=== PATIENT | female | born 1975 ===

== ENCOUNTER 2020-04-18 09:10 | Outpatient (CLI) | payer BC ==
[~2020-04-18 09:10] MED LIST: AMOXICILLIN500 M1; CEFACLOR500 MG PO; FIORICET 50-301 EACH PO; FLUCONAZOLE50 MG; PREDNISONE5 MG/DOSE- PO
== END 2020-04-18 14:43 | disposition home or self-care (01) ==
LOC: LAB 09:10
DX: N95.1 Menopausal and female climacteric states (principal); R89.1 Abnormal level of hormones in specimens from other organs, systems and tissues; E03.8 Other specified hypothyroidism; D64.89 Other specified anemias; E55.9 Vitamin D deficiency, unspecified; E78.49 Other hyperlipidemia; M81.6 Localized osteoporosis [Lequesne]; N39.0 Urinary tract infection, site not specified

== ENCOUNTER 2020-08-24 23:08 | Emergency (ER) | payer BC ==
[~2020-08-24] VITALS: Ht 170.2 cm; Wt 89.8 kg
[2020-08-25] MEDS ORDERED: ORAPRED ODT10 MG PO (06:28)
[2020-08-25] MEDS ORDERED: ZYNCOF 20-400120 ML PO (06:32)
[2020-08-25] MEDS ORDERED: ZITHROMAX500 MG PO ×2 (06:32→06:33)
[2020-08-25] MEDS ORDERED: QVAR REDIHALE10.6 G1 IH (06:32)
[2020-08-25] MEDS ORDERED: ALBUTEROL2.5 MG/3 M IH (06:32)
== END 2020-08-25 06:34 | disposition home or self-care (01) ==
LOC: ER 23:08
DX: U07.1 COVID-19 (principal); J40 Bronchitis, not specified as acute or chronic

== ENCOUNTER 2020-10-03 07:51 | Outpatient (CLI) | payer BC ==
[~2020-10-03 07:51] MED LIST changes: +ALBUTEROL2.5 MG/3 M IH; +ORAPRED ODT10 MG PO; +QVAR REDIHALE10.6 G1 IH; +ZITHROMAX500 MG PO; +ZYNCOF 20-400120 ML PO
== END 2020-10-03 07:58 | disposition home or self-care (01) ==
LOC: RAD 07:51 → MAMO-SONO 09:15
PROVIDERS: ATTEND Obstetrics & Gynecology
DX: M62.830 Muscle spasm of back (principal); M43.8X2 Other specified deforming dorsopathies, cervical region; N83.01 Follicular cyst of right ovary; N83.02 Follicular cyst of left ovary; M54.2 Cervicalgia

== ENCOUNTER 2020-10-03 09:33 | Outpatient (CLI) | payer BC | END 2020-10-03 09:45 | disposition home or self-care (01) | LOC: LAB 09:33 | DX: E11.9 Type 2 diabetes mellitus without complications (principal); E78.2 Mixed hyperlipidemia; N39.0 Urinary tract infection, site not specified; E03.1 Congenital hypothyroidism without goiter; B17.8 Other specified acute viral hepatitis; E61.1 Iron deficiency; E55.9 Vitamin D deficiency, unspecified; R19.5 Other fecal abnormalities; B34.8 Other viral infections of unspecified site; Z79.01 Long term (current) use of anticoagulants ==